=== PATIENT | male | born 1985 | race Caucasian/White ===

== ENCOUNTER 2019-11-19 | Emergency (ER) | payer BC ==
[~2019-11-19] MED LIST: AMOXICILLIN500 MG OR; BACTRIM DS1 TAB PO; CEPHALEXIN500 MG OR; ENALAPRIL10 MG PO; FLEXERIL OR; FLEXERIL PO; IMODIUM2 MG PO; KEFLEX500 MG OR; NAPROSYN500 MG OR; NAPROSYN500 MG PO; NO HOME MEDS; [UNRECOGNIZED DRUG - REMARK]
[2019-11-19] MEDS ORDERED: KEFLEX500 MG PO (17:23)
== END 2019-11-19 17:43 | disposition home or self-care (01) | DRG 605 ==
PROC: 0HC6XZZ Extirpation of Matter from Back Skin, External Approach (ICD-10-PCS; principal; 2019-11-19)
DX: S20.452A Superficial foreign body of left back wall of thorax, initial encounter (principal); F17.200 Nicotine dependence, unspecified, uncomplicated; W45.8XXA Other foreign body or object entering through skin, initial encounter; Y93.89 Activity, other specified; Y92.009 Unspecified place in unspecified non-institutional (private) residence as the place of occurrence of the external cause

== ENCOUNTER 2020-09-28 12:58 | Emergency (ER) | payer BC ==
[~2020-09-28] VITALS: Ht 188 cm; Wt 75.0 kg
[~2020-09-28 12:58] MED LIST changes: +KEFLEX500 MG PO
[2020-09-28 14:12] LABS: HEMATOCRIT 51.5 % (39.0-50.0); HEMOGLOBIN 17.7 g/dl (14.0-18.0); IMMATURE GRANULOCYTES 0.5 % (0.0-5.0); MEAN CORPUSCULAR HGB CONC 34.4 g/dL CAL (32.0-36.0); NEUT# 3.14 thou/uL (1.82-7.42); RED BLOOD COUNT 5.2 mill/uL (4.70-6.10); RED CELL DISTRI WIDTH 11.9 % (11.5-15.5)
[2020-09-28 14:22] LABS: ALBUMIN 4.9 g/dL (3.2-5.0); ALKALINE PHOSPHATASE 49 u/l (38-126); BUN 10 mg/dL (9-20); BUN/CREATININE RATIO 12 (12-20 (CALC)); CHLORIDE 100 mmol/l (95-108); CREATININE 0.8 mg/dL (0.7-1.3); GFR > 60 ML/MIN (>=60 (CALC)); GFR FOR AFR.AMER. > 60 ML/MIN (>=60 (CALC)); LIPASE 93 u/l (23-300); POTASSIUM 4.4 mmol/l (3.5-5.1); SODIUM 133 mmol/l (137-146); TOTAL PROTEIN 7.9 g/dL (6.3-8.2)
[2020-09-28 14:23] LABS: ANION GAP 8 (6-22 (CALC)); BILIRUBIN, TOTAL 1.8 mg/dL (0.0-1.4); CARBON DIOXIDE 29 mmol/l (22-30); SGOT/AST 66 u/l (17-59)
[2020-09-28] MEDS ORDERED: PROTONIX40 MG PO (15:44)
[2020-09-28 17:05] VITALS: BP 129/74
== END 2020-09-28 17:05 | disposition home or self-care (01) | DRG 392 ==
LOC: ED 12:58
PROVIDERS: Emergency Medicine
DX: K29.70 Gastritis, unspecified, without bleeding (principal); F10.10 Alcohol abuse, uncomplicated; I10 Essential (primary) hypertension; K21.9 Gastro-esophageal reflux disease without esophagitis; F17.200 Nicotine dependence, unspecified, uncomplicated
CPT/HCPCS: Q9967

== ENCOUNTER 2020-10-06 12:53 | Emergency (ER) | payer BC ==
[~2020-10-06] VITALS: Ht 188 cm; Wt 75.0 kg
[~2020-10-06 12:53] MED LIST changes: +PROTONIX40 MG PO
[2020-10-06] MEDS ORDERED: MOTRIN800 MG PO (13:47)
[2020-10-06 13:52] VITALS: BP 131/92
== END 2020-10-06 13:58 | disposition home or self-care (01) | DRG 605 ==
LOC: ED 12:53
DX: S20.211A Contusion of right front wall of thorax, initial encounter (principal); I10 Essential (primary) hypertension; F17.210 Nicotine dependence, cigarettes, uncomplicated; W50.0XXA Accidental hit or strike by another person, initial encounter; Y93.83 Activity, rough housing and horseplay; Y92.009 Unspecified place in unspecified non-institutional (private) residence as the place of occurrence of the external cause

== ENCOUNTER 2024-07-01 23:48 | Inpatient (IN) | payer SELFPAY ==
[~2024-07-01] VITALS: Ht 188 cm; Wt 70.0 kg
[~2024-07-01 23:48] MED LIST changes: +MOTRIN800 MG PO
--- NOTE | 2024-07-01 23:55 | NUR ---
PT AMBULATED TO RM 4 W/ STEADY GAIT
[2024-07-02] VITALS (19 sets, daily range): BP systolic 78–145; BP diastolic 54–108
[2024-07-02] MEDS ORDERED: SODIUM CHLORIDE 0.9% 1,000 ML IV STA (00:05)
[2024-07-02] MEDS ORDERED: Pantoprazole Sodium 40 MG VIAL (Protonix) IV STA (00:05)
[2024-07-02] MEDS ORDERED: PROMETHAZINE HCL 25 MG/ML AMP IV ONE (00:10)
[2024-07-02] MEDS ORDERED: LIDOCAINE VISCOUS 2% 15 ML UDC PO ONE (00:10)
[2024-07-02] MEDS ORDERED: KETOROLAC TROMETHAMINE 30 MG/ML SDV IV ONE (00:10)
[2024-07-02] MEDS ORDERED: ISOVUE-300 (Iopamidol) 100 ML SDV IV ONE (00:10)
[2024-07-02] MEDS ORDERED: ALUM & MAG HYDROX-SIMETHICONE 30 ML PO ONE (00:10)
--- NOTE | 2024-07-02 00:20 | NUR ---
PT IV PLACED, URINE COLLECTED, LABS DRAWN, PT MEDICATED PER ORDERS, UPDATED ON CONTINUOUS PLAN OF CARE, PT NOTED WITH 1 LARGE EPISODE OF VOMITING IN BR, WARM BLANKET PROVIDED WITH LIGHTS DIMMED AT THIS TIME, CALL LIGHT IN REACH, AWAITING ALL RESULTS AND CT SCAN.
[2024-07-02 00:24] LABS: BASO% 0.3 % (0-3); EOS% 0.8 % (0-8); HEMOGLOBIN 18.2 g/dl (14.0-18.0); IMMATURE GRANULOCYTES 0.9 % (0.0-5.0); LYMPH% 13.4 % (15-41); MEAN CELL VOLUME 101.3 fL CALC (80.0-100.0); MEAN CORPUSCULAR HGB 34.8 pG CALC (26.0-32.0); MEAN CORPUSCULAR HGB CONC 34.3 g/dL CAL (32.0-36.0); MONO% 13.1 % (2-13); NEUT# 7.57 thou/uL (1.82-7.42); NEUT% 71.5 % (42-76); RED BLOOD COUNT 5.23 mill/uL (4.70-6.10); RED CELL DISTRI WIDTH 11.7 % (11.5-15.5)
[2024-07-02 00:31] LABS: URINE GLUCOSE - DIPSTICK Negative (NEGATIVE); URINE KETONE 40 mg/dL (NEGATIVE); URINE LEUK ESTERASE Negative (NEGATIVE); URINE PROTEIN - DIPSTICK 100 mg/dL (NEG-TRACE); URINE SPECIFIC GRAVITY 1.025
[2024-07-02 00:32] LABS: URINE COLOR Yellow; URINE NITRITE - DIPSTICK Positive (Negative)
[2024-07-02 00:33] LABS: URINE BLOOD DIPSTICK Negative (NEGATIVE)
[2024-07-02 00:33] LABS: ALBUMIN 5.3 g/dL (3.2-5.0); BILIRUBIN, TOTAL 1.7 mg/dL (0.2-1.3); POTASSIUM 4.4 mmol/l (3.5-5.1)
[2024-07-02 00:36] LABS: URINE RBC 0-2 RBC/hpf (0-5)
[2024-07-02 00:37] LABS: URINE BACTERIA MODERATE hpf; URINE EPITHELIAL CELLS FEW EPI/hpf (0-FEW); URINE HYALINE CAST FEW lpf (NONE-RARE); URINE MUCUS MANY hpf (NONE-FEW)
--- NOTE | 2024-07-02 01:20 | NUR ---
PT RETURNED FROM CT SCAN AT THIS TIME, VOICES RELIEF OF N/V WITH DECREASED PAIN AT THIS TIME TO ABDOMINAL AREA. PT UPDATED ON CONTINUOUS PLAN OF CARE, AWAITING CT RESULTS.
--- NOTE | 2024-07-02 02:22 | NUR ---
NOTIFIED OF PT RESULTS, NOTIFIED BY RADIOLOGY AT THIS TIME DUE TO FINDINGS. AWAITING FURTHER ORDERS.
--- NOTE | 2024-07-02 02:24 | NUR ---
AT BEDSIDE FOR DISCUSSION OF RESULTS AND PLAN OF CARE.
--- NOTE | 2024-07-02 02:34 | NUR ---
MD VOICES NO NG TUBE AT THIS TIME DUE TO CESSATION OF PT VOMITING, STATES IF PT BEGINS VOMITING, REDISCUSS NG TUBE PLACEMENT.
[2024-07-02] MEDS ORDERED: PROMETHAZINE HCL 25 MG/ML AMP IV PRN (02:40)
[2024-07-02] MEDS ORDERED: FAMOTIDINE 10MG/ML 2ML SDV IV PRN (02:40)
[2024-07-02] MEDS ORDERED: ONDANSETRON 4 MG/TAB ODT PO PRN (02:40)
[2024-07-02] MEDS ORDERED: DEXTROSE IN LACTATED RINGERS 1,000 ML IV PRN (02:40)
[2024-07-02] MEDS ORDERED: MORPHINE SULFATE 4 MG/ML VIAL IV PRN (02:40)
[2024-07-02] MEDS ORDERED: ONDANSETRON HCl 4 MG/2 ML SDV IV PRN ×2 (02:40→16:40)
[2024-07-02] MEDS ORDERED: KETOROLAC TROMETHAMINE 30 MG/ML SDV IV PRN (02:40)
[2024-07-02] MEDS ORDERED: IBUPROFEN 800 MG/TAB PO PRN (02:40)
--- NOTE | 2024-07-02 03:07 | NUR ---
REPORT TO JEROME SHARP AT THIS TIME. PT AWAITING TRANSPORT TO [facility] [place].
--- NOTE | 2024-07-02 03:15 | NUR ---
PT TRANSPORTED TO [facility] VIA W/C, NAD NOTED, PT VOICES MODERATE RELIEF OF PAIN, SENIOR GIS ANALYST AND NURSE AWARE OF PT.
[2024-07-02] MEDS ORDERED: CLARIFY DOSE IV PRN (03:40)
--- NOTE | 2024-07-02 04:30 | NUR ---
PT RECEIVED FROM ER VIA WHEELCHAIR. REPORT RECEIVED FROM ER NURSE. PT ACCOMPANIED BY HIS SISTER. ASSESSMET COMPLETED AAT THIS TIME. PT IS ALERT AND ORIENTED X3. RESPS ARE EVEN AND UNLABORED. DENIES ANY N/V AT THIS TIME. ACTIVE BOWEL SOUNDS IN ALL QUADRANTS. ABDOMEN IS SOFT AND DISTENDED AT THIS YOEL, PT ORIENTED TO ROOM AND SURROUNDING. CALL LIGHT IN RECAH AND SAFETY PRECQUTIONS ON PLACE.
--- NOTE | 2024-07-02 07:28 | NUR ---
patient a/o x3; room air; breating unlabored and even; no s.s of distress at this time; pain level is 5/10, pateint decline pain medication at this time; iv site on LAC clean and inatct running with fluids @200; patient NPO at this time; rechecked blood pressure 137/99; call light within reach, verbalized understanding on how to use, personal items within reach; bed in lowest postion;safety measures in place
[2024-07-02] MEDS ORDERED: DIATRIZOATE MEGLUMINE & SODIUM 120 ML/BTL BTL PO SCH (09:30)
--- NOTE | 2024-07-02 09:40 | NUR ---
patient went to radiology
--- NOTE | 2024-07-02 12:52 | NUR ---
patient unable to tolerate ng tube, called provider and informed of removeal of ng tube, talke dto patient that provider will be here soon to talk to him about surgery; notified provider that ID informed that patinet is posstive for UTI; no complaints
[2024-07-02] MEDS ORDERED: chlordiazePOXIDE HCL 25 MG CAP PO PRN (13:25)
[2024-07-02] MEDS ORDERED: LORazepam 2 MG/ML IV PRN (13:25)
[2024-07-02] MEDS ORDERED: SUGAMMADEX SODIUM 200 MG/2 ML SDV IV ONE (13:36)
[2024-07-02] MEDS ORDERED: ROCURONIUM BROMIDE 10 MG/ML 5ML VIAL IV ONE (13:36)
[2024-07-02] MEDS ORDERED: LACTATED RINGER'S 1,000 ML BAG IV ONE (13:36)
[2024-07-02] MEDS ORDERED: SUCCINYLCHOLINE CHLORIDE 20 MG/ML 10ML VIAL IV ONE (13:36)
[2024-07-02] MEDS ORDERED: PROPOFOL 200 MG/20 ML VIAL IV ONE (13:36)
[2024-07-02] MEDS ORDERED: MIDAZOLAM HCL 2 MG/2 ML VIAL IV ONE (13:36)
--- NOTE | 2024-07-02 13:40 | NUR ---
PATIENT WENT TO OR
[2024-07-02] MEDS ORDERED: FAMOTIDINE 10MG/ML 2ML SDV IV ONE (13:49)
[2024-07-02] MEDS ORDERED: MULTIPLE VITAMIN 10 ML,THIAMINE HCL 100 MG in SODIUM CHLORIDE 0.9% 1,000 ML IV SCH ×2 (14:00→18:00)
--- NOTE | 2024-07-02 15:42 | NUR ---
report was given to layne acevedo; patient still in OR
[2024-07-02] MEDS ORDERED: LIDOcaine HCl 1% (Local Anesth.) 20 ML VIAL ONE (16:31)
[2024-07-02] MEDS ORDERED: STERILE WATER FOR IRRIGATION 1,000 ML BTL IR ONE (16:31)
[2024-07-02] MEDS ORDERED: SODIUM CHLORIDE 1,000 ML BTL IR ONE (16:32)
[2024-07-02] MEDS ORDERED: SODIUM CHLORIDE 0.9% 1,000 ML IV PRN (16:40)
[2024-07-02] MEDS ORDERED: SIMETHICONE 20 MG/0.3 ML PO PRN (16:40)
[2024-07-02] MEDS ORDERED: HYDROmorphone HCL 2 MG/AMP IV PRN (16:40)
[2024-07-02] MEDS ORDERED: KETOROLAC TROMETHAMINE 30 MG/ML SDV ONE ×2 (16:58→17:02)
[2024-07-02] MEDS ORDERED: ACETAMINOPHEN 100 ML IV ONE (16:59)
[2024-07-02] MEDS ORDERED: LACTATED RINGER'S 1,000 ML IV ONE (17:21)
--- NOTE | 2024-07-02 17:35 | NUR ---
PT ARRIVED TO THE UNIT VIA BED FROM THE OR, PT A&O X3, O2 PLACED ON PT, SCDs PLACED ON PT, SAFETY MEASURES REINFORCED, CALL CEDENO WITHIN REACH
[2024-07-02] MEDS ORDERED: KETOROLAC TROMETHAMINE 15 MG/ML SDV IV SCH (18:00)
--- NOTE | 2024-07-02 18:30 | NUR ---
there are no vitals for the Q15 mins from time, patient arrived from OR; DELIVERY SUPERVISOR just notfied writter that they was not completed, informed croze machine operator to start vitals from this time and continue with post op protocal;
--- NOTE | 2024-07-02 19:21 | NUR ---
PT RESTING ON BED WATCHING TV AT THIS TIME. ALERT AND ORIENTED X3/ RESPS ARE EVEN AND UNLABORED. NO SIGMS OF DISTRESS NOTED. O2 VIA NC AT 2L. DENIES ANY ABD PAIN AT THIS MOMENT. HYPOACTIVE BOWEL SOUNDS AND SOFT AND DISTENDED ABDOMEN NOTED. STATED HE HAS HAD A BOWEL MOVEMEMT THAT WAS LOOSE, CLEAR A FEW MINUTES AGO. SCD'S ON PLACE AND SAFETY SOCKS ON PLACE ORDERED. IV FLUIDS INFUSING VIA 22 G IV LEFT FOREARM AT THIS TIME. DENIES ANY ADDITIONAL NEEDS AT THIS TIME. ENCOURAGED TO CALL FOR ASSISTANCE IF NEEDED. CALL LIGHT IN RECAH AND SAFETY PRECAUTIONS ON PLACE.
[2024-07-03] VITALS (10 sets, daily range): BP systolic 113–144; BP diastolic 71–97
--- NOTE | 2024-07-03 01:06 | NUR ---
PT RESTING ON BED WITH EYES CLOSED. SCD'S ON PLACE ORDERED. RESPS ARE EVEN AND UNLABORED. NO SIGNS OF DISTRESS NOTED. O2 VIA NC AT 2L ON PLACE/ CALL LIGHT IN REACH AND SAFETY PRECAUTIONS ON PLACE/
--- NOTE | 2024-07-03 04:16 | NUR ---
PT RESTING ON BED. RESPS ARE EVEN AND UNLABORED. NO SIGNS OF DISTRESS, [address] CALL LIGHT ON REACH AND SAFETY PRECAUTIONS ON PLACE
[2024-07-03 05:38] LABS: BILIRUBIN, TOTAL 1.4 mg/dL (0.2-1.3); CREATININE 0.9 mg/dL (0.7-1.3); MAGNESIUM 2.1 mg/dL (1.6-2.3); POTASSIUM 3.9 mmol/l (3.5-5.1)
[2024-07-03 05:39] LABS: BASO% 0.3 % (0-3); EOS% 0.8 % (0-8); IMMATURE GRANULOCYTES 0.1 % (0.0-5.0); LYMPH% 13.9 % (15-41); MEAN CORPUSCULAR HGB 35.8 pG CALC (26.0-32.0); MEAN CORPUSCULAR HGB CONC 33.3 g/dL CAL (32.0-36.0); MONO% 10.8 % (2-13); NEUT# 7.25 thou/uL (1.82-7.42); NEUT% 74.1 % (42-76); RED BLOOD COUNT 3.91 mill/uL (4.70-6.10); RED CELL DISTRI WIDTH 11.7 % (11.5-15.5)
[2024-07-03 06:04] LABS: MEAN CELL VOLUME 107.4 fL CALC (80.0-100.0)
[2024-07-03 06:11] LABS: ALBUMIN 3.3 g/dL (3.2-5.0); TOTAL PROTEIN 5.4 g/dL (6.3-8.2)
--- NOTE | 2024-07-03 07:15 | NUR ---
PT LAYING IN BED RESTING WITH EYES CLOSED, AROUSES EASILY TO VERBAL STIMULI, PT DENIES ANY NEEDS AT THIS TIME, CALL CEDENO WITHIN REACH
--- NOTE | 2024-07-03 12:00 | NUR ---
PT LAYING IN BED RESTING WITH EYES CLOSED, AROUSES EASILY TO VERBAL STIMULI, PT IS A&O X3, PUPILS PERRL, NORMAL S1 S2 HEART SOUNDS, RESP. EVEN AND UNLABORED, LUNG SOUNDS ARE CLEAR, ABD DISTENDED AND SOFT WITH ACTIVE BOWEL SOUNDS, STRONG RADIAL AND PEDAL PULSES, 3 INCISIONS ON ABD DERMABONDED WITH NO BLEEDING OR REDNESS AT SITES, 20G LAC IV WITH FLUIDS INFUSING AT PRESCRIBED RATE, SAFETY MEASURES REINFORCED, CALL CEDENO WITHIN REACH
[2024-07-03] MEDS ORDERED: oxyCODONE 5MG/ ACETAMINOPHEN 325MG TAB PO PRN (12:30)
--- NOTE | 2024-07-03 16:00 | NUR ---
VISITORS AT BEDSIDE, PT SITTING UP IN BED, DENIES ANY NEEDS AT THIS TIME, CALL CEDENO WITHIN REACH
--- NOTE | 2024-07-03 19:48 | NUR ---
PATIENT OBSERVED RESTING IN BED. ALERT AND ABLE TO MAKE NEEDS KNOWN. ASSESSMENT COMPLETE. INCISION SITES X3 TO LEFT SIDE OF ABDOMEN CDI. NO DISTRESS NOTED. PATIENT ABLE TO AMBULATE WITHOUT DIFFICULTY. DENIES NEEDING ANYTHING AT THIS TIME. BED IN LOW POSITION. CALL CEDENO IN REACH.
--- NOTE | 2024-07-03 23:31 | NUR ---
RECEIVED SCHEDULED PAIN MEDICINE. NO COMPLAINTS VOICED AT THIS TIME. ASKED FOR BIGGER SOCKS AND PROVIDED. DENIES NEEDING ANYTHING ELSE. BED IN LOW POSITION. CALL CEDENO IN REACH.
[2024-07-04 03:35] VITALS: BP 109/49
[2024-07-04 03:37] VITALS: BP 126/89
--- NOTE | 2024-07-04 03:39 | NUR ---
PATIENT REMAINS RESTING IN BED. DENIES NEEDING ANYTHING AT THIS TIME. BED REMAINS IN LOW POSITION. CALL CEDENO IN REACH.
[2024-07-04 04:23] VITALS: BP 126/89
[2024-07-04 05:41] LABS: BASO% 0.2 % (0-3); EOS% 3.4 % (0-8); HEMATOCRIT 43.7 % (39.0-50.0); HEMOGLOBIN 14.9 g/dl (14.0-18.0); IMMATURE GRANULOCYTES 0.2 % (0.0-5.0); LYMPH% 21.2 % (15-41); MEAN CELL VOLUME 102.6 fL CALC (80.0-100.0); MEAN CORPUSCULAR HGB CONC 34.1 g/dL CAL (32.0-36.0); MONO% 13.1 % (2-13); NEUT# 3.65 thou/uL (1.82-7.42); NEUT% 61.9 % (42-76); RED BLOOD COUNT 4.26 mill/uL (4.70-6.10); RED CELL DISTRI WIDTH 11.3 % (11.5-15.5)
[2024-07-04 06:03] LABS: ALBUMIN 3.3 g/dL (3.2-5.0); BILIRUBIN, TOTAL 0.9 mg/dL (0.2-1.3); CREATININE 0.8 mg/dL (0.7-1.3); MAGNESIUM 2.2 mg/dL (1.6-2.3); TOTAL PROTEIN 5.8 g/dL (6.3-8.2)
[2024-07-04 07:05] VITALS: BP 129/92
--- NOTE | 2024-07-04 07:12 | NUR ---
PATIENT LYING IN BED AWAKE. BREATHING UNLABORED ON ROOM AIR. IV IN RAC SL;SITE CLEAN AND INTACT. PT DENIES ANY PAIN OR N/D/V AT THIS TIME. BED IN LOWEST POSITION. PERSONAL ITEMS WELL CALL LIGHT WITHIN REACH. POC ONGOING.
[2024-07-04] MEDS ORDERED: PERCOCET 5/325M1 TAB PO (08:19)
[2024-07-04] MEDS ORDERED: MULTIPLE VITAMIN TABLET PO SCH (09:00)
[2024-07-04] MEDS ORDERED: FOLIC ACID 1 MG/TAB PO SCH (09:00)
[2024-07-04] MEDS ORDERED: THIAMINE HCL 100 MG TAB PO SCH (09:00)
--- NOTE | 2024-07-04 09:58 | NUR ---
Discharge instructions given. Patient verbalizes understanding of same. Discharged in stable condition via Ambulatory to Home with staff. All belongings sent with pt.
--- NOTE | 2024-07-05 14:38 | NUR ---
DISCHARGE FOLLOW UP CALL COMPLETED 07/05/24. PAIENT STATES HE IS DOING WELL AND HAS HAD NO ISSUES SINCE DISCHARGE. PATIENT IS TAKING MEDICATION DIRECTED. PT WILL CONTACT HIS PHYSICIAN TO SCHEDULE A FOLLOW UP APPOINTTMENT. NO NEEDS OR CONCERNS VERBALIZED AT THIS TIME.
== END 2024-07-04 09:56 | disposition home or self-care (01) | DRG 336 ==
LOC: ED 23:48 → ED-I 07-02 00:12 → ED 07-02 02:40 → MS2 07-02 02:41
PROVIDERS: Family Medicine; Nurse Practitioner Family; ADMIT Surgery; ATTEND Surgery
PROC: 0DN84ZZ Release Small Intestine, Percutaneous Endoscopic Approach (ICD-10-PCS; principal; 2024-07-02)
DX: K56.50 Intestinal adhesions [bands], unspecified as to partial versus complete obstruction (principal); F10.139 Alcohol abuse with withdrawal, unspecified; N39.0 Urinary tract infection, site not specified; I10 Essential (primary) hypertension; F17.200 Nicotine dependence, unspecified, uncomplicated; K70.10 Alcoholic hepatitis without ascites
CPT/HCPCS: J0131; J0690; J0696; J1171; J1885; J2470; J2550; Q9967

== ENCOUNTER 2024-08-06 13:26 | Emergency (ER) | payer SELFPAY ==
[~2024-08-06] VITALS: Ht 188 cm; Wt 72.5 kg
[2024-08-06] VITALS (11 sets, daily range): BP systolic 126–142; BP diastolic 93–112
[~2024-08-06 13:26] MED LIST changes: +PERCOCET 5/325M1 TAB PO
[2024-08-06] MEDS ORDERED: NAPROXEN 250 MG/TAB PO ONE (13:55)
[2024-08-06] MEDS ORDERED: NAPROXEN500 MG PO (15:30)
== END 2024-08-06 15:58 | disposition home or self-care (01) | DRG 563 ==
LOC: ED 13:26
DX: S43.002A Unspecified subluxation of left shoulder joint, initial encounter (principal); M85.422 Solitary bone cyst, left humerus; F17.200 Nicotine dependence, unspecified, uncomplicated; X50.0XXA Overexertion from strenuous movement or load, initial encounter; Y92.59 Other trade areas as the place of occurrence of the external cause; Y99.0 Civilian activity done for income or pay